=== PATIENT | female | born 1960 | race Caucasian/White ===

== ENCOUNTER 2025-01-06 06:17 | Day surgery (SDC) | payer MEDICARE, MEDICAID, SELFPAY ==
[2025-01-03 13:57] VITALS: BMI 39.2
[2025-01-06] VITALS (8 sets, daily range): BP systolic 101–124; BP diastolic 57–81; PULSE 74–82; RESP 12–18; TEMP 36.2–36.5; O2SAT 92–100; BMI 39.2
--- NOTE | 2025-01-06 06:27 | PM.HP.1 ---
History of Present Illness History of Present Illness Chief complaint: L foot pain Narrative: Patient presents with ongoing pain from bunion and prominent fifth metatarsal that inhibits ambulation. Patient continues to develop secondary painful callus. She would like to proceed with surgical intervention. She has the social barriers addressed for aftercare. Patient denies n/v/f/c/sob/cp. [facility] Medical History (Updated 01/03/25 @ 14:26 by Anna Peraza RN) IBS (irritable bowel syndrome) HLD (hyperlipidemia) History of posttraumatic stress disorder (PTSD) Peptic ulcer of stomach Bipolar disorder Impaired glucose tolerance Anxiety Depression History of endometrial cancer Mild emphysema Ulcerative colitis GERD (gastroesophageal reflux disease) Pre-diabetes Hypothyroidism Surgical History (Updated 01/03/25 @ 14:26 by Anna Peraza RN) S/P breast lumpectomy H/O: hysterectomy Hx of thyroidectomy Hx of appendectomy Hx of tonsillectomy Social History household members: spouse Smoking Status: Current every day smoker Meds Home Medications and Allergies Home Medications ?Medication ?Instructions ?Recorded ?Confirmed ?Type aripiprazole 2 mg tablet 2 mg PO DAILY 01/05/25 01/05/25 History aripiprazole 5 mg tablet 5 mg PO DAILY 01/05/25 01/05/25 History duloxetine 60 mg capsule,delayed 120 mg PO DAILY 01/05/25 01/05/25 History release fluticasone propionate 50 2 spray intranasal DAILY 01/05/25 01/05/25 History mcg/actuation nasal spray,suspension lamotrigine 200 mg tablet 200 mg PO DAILY 01/05/25 01/05/25 History lamotrigine 25 mg tablet 50 mg PO DAILY 01/05/25 01/05/25 History levocetirizine 5 mg tablet 5 mg PO QPM 01/05/25 01/05/25 History levothyroxine 100 mcg tablet 100 mcg PO DAILY 01/05/25 01/05/25 History lorazepam 0.5 mg tablet 0.5 mg PO Q8H 01/05/25 01/05/25 History oxybutynin chloride 5 mg 5 mg PO DAILY 01/05/25 01/05/25 History tablet,extended release 24 hr pantoprazole 20 mg tablet,delayed 20 mg PO BID 01/05/25 01/05/25 History release topiramate 50 mg tablet 50 mg PO TID 01/05/25 01/05/25 History Exam Extrem Other: Left foot: mild hallux abducto valgus deformity with enlarged medial eminence and painful palpation to fifth metatarsal head. Assessment & Plan Assessment & Plan narrative: 1. Left foot bunion 2. Left foot hypertrophy of fifth metatarsal Patient seen and evaluated. Surgical plan: left foot bunionectomy and fifth metatarsal head removal. Risks and benefits of the procedure discussed with all questions answered to patient's satisfaction. Reviewed potential complications that may include but not limited to the following: DVT, failure to resolve all symptoms, infection, nerve injury, bleeding, recurrence, or wound. Reviewed surgical technique and general aftercare protocols. All questions answered to patient's satisfaction with no guarantees made. Patient verbalized understanding and agreed with surgical plan. RTC for post-op. Time-Based Coding :: [TOTAL MINUTES] spent with patient and on the chart (including review of chart, obtaining history, exam, reviewing outside data, placing orders, documenting exam and treatment plan, and counseling patient) on [DATE].
--- NOTE | 2025-01-06 06:32 | PM.PREOP ---
Pre-operative Note Interval Note History & Physical reviewed/Exam performed by Physician: Yes Changes to H&P: No
--- NOTE | 2025-01-06 07:00 | EKG_ITS ---
[address] [address] Test Date: 2025-01-06 Pat Name: Dinah Venegas Department: Room: Gender: Female [employer] Operator: SENIA : 1960 Requested By: Order Number: [id number] Reading MD: Lucas Brizuela Measurements Intervals [place] Rate: 70 P: 61 CA: 180 QRS: 48 QRSD: 82 T: 40 QT: 368 QTc: 397 Interpretive Statements Normal sinus rhythm Low voltage QRS Nonspecific T wave abnormality Electronically Signed On 01-14-2025 13:53:24 PDT by Lucas Brizuela
[2025-01-06] MEDS: CLINDAMYCIN 900 MG/50 ML PIGGYBACK 50 MG IV (08:21)
[2025-01-06] MEDS: ACETAMINOPHEN IV 1,000 MG/100 ML VIAL 400 MG IV (08:40)
--- NOTE | 2025-01-06 08:42 | SUR.OPER ---
Supine on padded OR bed, head on pillow, arms secured on padded arm boards at <90 degrees abduction, legs uncrossed, safety belt at thigh, tape over blanket over lower right leg, left leg prepped into field. surgeon aided with positioning
[2025-01-06] MEDS: LACTATED RINGERS 1,000 ML 42 ML IV (10:40)
--- NOTE | 2025-01-09 10:44 | PM.OP.1 ---
Operative Date/Time/Diagnoses Date of procedure: 01/06/25 Time of procedure: 07:45 Pre-op diagnosis: 1. Left foot bunion 2. Left foot fifth metatarsal bone hypertrophy Post-op diagnosis: same Procedure & Clinicians Procedure: 1. Left foot bunionectomy with double osteotomy (MIS distal metatarsal head and proximal phalanx) 2. Left foot fifth metatarsal head full resection Same procedure(s) as scheduled: Yes Indications: Chronic and recurrent pain Surgeon: Nando Norwood Yes if Unassisted: Yes Anesthesia Type: General and Peripheral nerve block Operative Notes Findings: Consistent with diagnosis Closure Type: primary Specimen(s): none sent Applied: none Estimated Blood Loss (mL): 5 Tourniquet time (min): 131 Procedure in detail: The patient was identified and brought into operating room on [facility], and she was transferred onto the operating table in supine position. General anesthesia was inducted while regional block was performed in holding area. A thigh tourniquet was applied over well-padded surface and inflated for the case case. Left foot was then prepped and draped in usual sterile fashion, followed by official timeout with surgical team all in agreement. Attention was first directed to the left fifth metatarsal head. Prominent callus was noted at the plantar surface, which was pared down using a # 15 scalpel without incidence. A new # 15 scalpel was used to make a linear incision at dorsal fifth ray, and dissection was carried out from skin down to the fifth metatarsophalangeal joint, which reflected. A sagittal saw under power was used to resect and remove the head of the fifth metatarsal. Cut surface was smoothed down using a rasp. Surigcal site was irrigated and closed from deep to superficial using a 3-0 vicryl and a 3-0 nylon. Procedure site was covered with a Tegaderm. Attention was then directed to the left foot first ray. Anatomy was traced using a skin marker and verified on fluoroscopy. A small stab incision was made near the first metatarsal head just proximal to the sesamoid complex. The MIS royce under power was used the make the transverse osteotomy, where the orientation of cut was determined with respect to parabola of forefoot and rotation of deformity. The capital fragment was then translated laterally and held in position by the shifting device. A trajectory guide was applied per manufacture instruction, and K-wires were inserted from the proximal medial aspect of the surgical site for temporary fixation and guidance. Position of the correction was verified on fluoroscopy. Decision was made to insert a 4.0 mm and a 3.5 mm beveled screws through keyhole incisions using a # 15 scalpel in proper alignment, which was verified radiographically. Attention was then directed to left hallux. In similar fashion, a MIS royce under power was used to make a medial based wedge at the level of proximal phalanx. The osteotomy was verified on on fluoroscopy, and fixation was carried out using a 2.5 mm screw through a keyhole incision made with a # 15 scalpel. All incision sites were then irrigated using copious saline, tourniquet was released, and closed with a 3-0 nylon. Left foot was cleaned and dried, followed by sterile dressing using iodine soaked Adpatic, gauze, abdominal pad, Kerlix, and Kodak Bandage. Patient tolerated procedure and was transferred to post-anesthesia care unit with all vital signs table. Complications: none Post-operative Condition: stable Disposition: same day surgery Plan for aftercare: NWB to surgical limb. Elevate above heart. Ice behind knee 15 minutes/hour.
== END 2025-01-06 13:05 | disposition home or self-care (01) ==
PROVIDERS: Referring Provider Podiatrist Foot & Ankle Surgery; Visit Provider Podiatrist Foot & Ankle Surgery
PROC: 0QBP0ZZ Excision of Left Metatarsal, Open Approach (ICD-10-PCS; CPT 28292; principal; 2025-01-06 07:45)
DX: M20.12 Hallux valgus (acquired), left foot (principal); M89.372 Hypertrophy of bone, left ankle and foot; F17.210 Nicotine dependence, cigarettes, uncomplicated; G89.18 Other acute postprocedural pain
CPT/HCPCS: 28299; 28113; 64445; 82962; 93005; C1713; J0131; J1100; J2250; J2405; J2704; J3010